=== PATIENT | female | born 1930 | race Caucasian/White ===

== ENCOUNTER 2017-09-08 22:02 | Inpatient (IN) | payer MEDICAID ==
[2017-09-08] MEDS: ONDANSETRON 4 MG INJ IV (23:39)
[2017-09-08] MEDS: morphine 2 MG INJ IV (23:39)
[2017-09-09 02:37] LABS: ADD MAN DIFF? NO
[2017-09-09 02:38] LABS: ABNORMAL IP MESSAGE 1; BASOPHIL # 0.1 10^3/ul (0.0-0.1); BASOPHILS % 0.6 % (0.0-2.0); EOSINOPHILS % 0.4 % (0.0-7.0); HEMOGLOBIN 10.8 g/dl (12.0-16.0); LYMPHOCYTES # 0.5 10^3/ul (0.8-2.9); LYMPHOCYTES % 5.8 % (15.0-51.0); MEAN CORPUSCULAR HEMOGLOBIN 25.1 pg (29.0-33.0); MEAN CORPUSCULAR HGB CONC 30.9 g/dl (32.0-37.0); MEAN CORPUSCULAR VOLUME 81.2 fl (82.0-101.0); MEAN PLATELET VOLUME 10.1 fl (7.4-10.4); MONOCYTE # 0.8 10^3/ul (0.3-0.9); NEUTROPHIL # 6.9 10^3/ul (1.6-7.5); PLATELET COUNT 310 10^3/UL (140-415); RED BLOOD COUNT 4.31 10^6/ul (4.20-5.40); RED CELL DISTRIBUTION WIDTH 16.3 % (11.5-14.5)
[2017-09-09 02:38] LABS: WHITE BLOOD COUNT 8.3 10^3/ul (4.8-10.8)
[2017-09-09 02:48] LABS: POSITIVE DIFF @See below
[2017-09-09 02:54] LABS: INR 2.04; PARTIAL THROMBOPLASTIN TIME 33.7 Sec (25.0-35.0); PROTIME 23.5 Sec (11.9-14.9); PT RATIO 1.8
[2017-09-09 02:55] LABS: ALANINE AMINOTRANSFERASE 17 IU/L (13-69); ALBUMIN 3.8 g/dl (3.3-4.9); ALBUMIN/GLOBULIN RATIO 1.15; ALKALINE PHOSPHATASE 105 IU/L (42-121); ANION GAP 14 (8-16); ASPARTATE AMINO TRANSFERASE 28 IU/L (15-46); BILIRUBIN,INDIRECT 0.6 mg/dl (0-1.1); BILIRUBIN,TOTAL 0.6 mg/dl (0.2-1.3); BLOOD UREA NITROGEN 16 mg/dl (7-20); CALCIUM 9.5 mg/dl (8.4-10.2); CARBON DIOXIDE 31 mmol/L (21-31); CHLORIDE 99 mmol/L (97-110); CREATININE 0.59 mg/dl (0.44-1.00); GLUCOSE 101 mg/dl (70-220); POTASSIUM 3.2 mmol/L (3.5-5.1); SODIUM 141 mmol/L (135-144); TOTAL PROTEIN 7.1 g/dl (6.1-8.1)
[2017-09-09] MEDS ORDERED: HYDROCODONE/APAP (5/325) TAB PO (05:30)
[2017-09-09] MEDS ORDERED: ONDANSETRON 4 MG INJ IV (05:30)
[2017-09-09] MEDS: PANTOPRAZOLE (EC) 40 MG TAB PO (06:23)
[2017-09-09] MEDS: POTASSIUM CHLORIDE (SR) 20 MEQ TAB PO ×2 (08:45→08:50)
[2017-09-09] MEDS: FUROSEMIDE 40 MG TAB PO (08:51)
[2017-09-09] MEDS: BENAZEPRIL 40 MG TAB PO (08:52)
[2017-09-09] MEDS: HEPARIN 5,000 UNIT/0.5 ML VIAL SC ×2 (08:52→21:53)
[2017-09-09] MEDS ORDERED: RANITIDINE 150 MG TAB PO (09:00)
[2017-09-09] MEDS: HYDROCODONE/APAP (5/325) TAB PO ×2 (10:44→14:46)
[2017-09-09] MEDS ORDERED: WARFARIN 1 MG TAB PO (17:00)
[2017-09-09] MEDS ORDERED: morphine 2 MG INJ IV (17:30)
[2017-09-09] MEDS: ATORVASTATIN 10 MG TAB PO (21:52)
[2017-09-10] MEDS: HYDROCODONE/APAP (5/325) TAB PO (03:09)
[2017-09-10] MEDS: PANTOPRAZOLE (EC) 40 MG TAB PO (05:04)
[2017-09-10 06:40] LABS: ADD MAN DIFF? NO
[2017-09-10 06:48] LABS: WHITE BLOOD COUNT 5.8 10^3/ul (4.8-10.8)
[2017-09-10 06:48] LABS: ABNORMAL IP MESSAGE 1; BASOPHIL # 0.1 10^3/ul (0.0-0.1); BASOPHILS % 1.2 % (0.0-2.0); EOSINOPHILS # 0.1 10^3/ul (0.0-0.5); EOSINOPHILS % 1.9 % (0.0-7.0); HEMATOCRIT 32.8 % (37.0-47.0); HEMOGLOBIN 9.7 g/dl (12.0-16.0); LYMPHOCYTES # 0.5 10^3/ul (0.8-2.9); LYMPHOCYTES % 8.7 % (15.0-51.0); MEAN CORPUSCULAR HEMOGLOBIN 24.4 pg (29.0-33.0); MEAN CORPUSCULAR HGB CONC 29.6 g/dl (32.0-37.0); MEAN CORPUSCULAR VOLUME 82.4 fl (82.0-101.0); MEAN PLATELET VOLUME 10.4 fl (7.4-10.4); MONOCYTE # 0.9 10^3/ul (0.3-0.9); MONOCYTES % 15.4 % (0.0-11.0); NEUTROPHIL # 4.2 10^3/ul (1.6-7.5); NEUTROPHILS % 72.5 % (39.0-77.0); PLATELET COUNT 291 10^3/UL (140-415); RED BLOOD COUNT 3.98 10^6/ul (4.20-5.40)
[2017-09-10 06:54] LABS: POSITIVE DIFF @See below
[2017-09-10 06:59] LABS: HEMOGLOBIN A1C 6.2 % (0-5.9)
[2017-09-10 07:09] LABS: INR 1.47; PROTIME 18.1 Sec (11.9-14.9); PT RATIO 1.4
[2017-09-10 07:13] LABS: IRON 35 ug/dl (35-150)
[2017-09-10 07:14] LABS: ALANINE AMINOTRANSFERASE 19 IU/L (13-69); ALBUMIN 3.5 g/dl (3.3-4.9); ALBUMIN/GLOBULIN RATIO 1.16; ALKALINE PHOSPHATASE 99 IU/L (42-121); ANION GAP 8 (8-16); ASPARTATE AMINO TRANSFERASE 27 IU/L (15-46); BILIRUBIN,INDIRECT 0.7 mg/dl (0-1.1); BILIRUBIN,TOTAL 0.7 mg/dl (0.2-1.3); BLOOD UREA NITROGEN 23 mg/dl (7-20); CALCIUM 9.1 mg/dl (8.4-10.2); CARBON DIOXIDE 32 mmol/L (21-31); CHLORIDE 102 mmol/L (97-110); CREATININE 0.75 mg/dl (0.44-1.00); GLUCOSE 88 mg/dl (70-220); POTASSIUM 4.3 mmol/L (3.5-5.1); SODIUM 138 mmol/L (135-144); TOTAL PROTEIN 6.5 g/dl (6.1-8.1)
[2017-09-10 07:22] LABS: % IRON SATURATION 8 % SAT (22-52); TOTAL IRON BINDING CAPACITY 425 ug/dl (241-421)
[2017-09-10 07:40] LABS: PHOSPHORUS 4.6 mg/dl (2.5-4.9)
[2017-09-10 07:40] LABS: MAGNESIUM 1.8 mg/dl (1.7-2.5)
[2017-09-10 07:42] LABS: FERRITIN 27.8 ng/ml (11.1-264.0)
[2017-09-10] MEDS: POTASSIUM CHLORIDE (SR) 20 MEQ TAB PO (08:32)
[2017-09-10] MEDS: SENNA/DOCUSATE NA (8.6MG/50MG) TAB PO (08:32)
[2017-09-10] MEDS: HEPARIN 5,000 UNIT/0.5 ML VIAL SC ×2 (08:33→21:01)
[2017-09-10] MEDS: BENAZEPRIL 40 MG TAB PO (08:33)
[2017-09-10] MEDS ORDERED: FAMOTIDINE 20 MG TAB PO (09:00)
[2017-09-10 09:31] LABS: FOLATE 7.5 ng/ml (2.8-20.0)
[2017-09-10] MEDS ORDERED: BISACODYL 10 MG SUPP PR (16:30)
[2017-09-10] MEDS ORDERED: HYDROCORTISONE 25 MG SUPP PR (16:30)
[2017-09-10] MEDS ORDERED: ALBUTEROL 0.083% (NEB) 2.5 MG/3 ML AMP HHN (16:30)
[2017-09-10] MEDS: LACTULOSE 30ML CUP PO (17:07)
[2017-09-10 18:23] LABS: RAPID PLASMA REAGIN NONREACTIVE (NR)
[2017-09-10] MEDS: ATORVASTATIN 10 MG TAB PO (21:01)
[2017-09-10] MEDS ORDERED: morphine LIQ (10 MG/5 ML) CUP PO (22:00)
[2017-09-10] MEDS: HYDROCODONE/APAP (10/325) TAB PO (22:33)
[2017-09-11 05:45] LABS: ADD MAN DIFF? NO
[2017-09-11 05:49] LABS: WHITE BLOOD COUNT 7.9 10^3/ul (4.8-10.8)
[2017-09-11 05:49] LABS: BASOPHIL # 0.1 10^3/ul (0.0-0.1); BASOPHILS % 0.9 % (0.0-2.0); EOSINOPHILS # 0.1 10^3/ul (0.0-0.5); EOSINOPHILS % 0.8 % (0.0-7.0); HEMATOCRIT 33.1 % (37.0-47.0); HEMOGLOBIN 9.8 g/dl (12.0-16.0); LYMPHOCYTES # 0.6 10^3/ul (0.8-2.9); LYMPHOCYTES % 7.8 % (15.0-51.0); MEAN CORPUSCULAR HEMOGLOBIN 24.4 pg (29.0-33.0); MEAN CORPUSCULAR HGB CONC 29.6 g/dl (32.0-37.0); MEAN CORPUSCULAR VOLUME 82.5 fl (82.0-101.0); MEAN PLATELET VOLUME 10.6 fl (7.4-10.4); MONOCYTE # 1.1 10^3/ul (0.3-0.9); MONOCYTES % 13.6 % (0.0-11.0); NEUTROPHIL # 6.1 10^3/ul (1.6-7.5); NEUTROPHILS % 76.5 % (39.0-77.0); PLATELET COUNT 288 10^3/UL (140-415); RED BLOOD COUNT 4.01 10^6/ul (4.20-5.40)
[2017-09-11 06:22] LABS: ANION GAP 8 (8-16); BLOOD UREA NITROGEN 21 mg/dl (7-20); CALCIUM 9.2 mg/dl (8.4-10.2); CARBON DIOXIDE 32 mmol/L (21-31); CHLORIDE 101 mmol/L (97-110); CREATININE 0.72 mg/dl (0.44-1.00); GLUCOSE 104 mg/dl (70-220); POTASSIUM 4.4 mmol/L (3.5-5.1); SODIUM 137 mmol/L (135-144)
[2017-09-11] MEDS: PANTOPRAZOLE (EC) 40 MG TAB PO (08:47)
[2017-09-11] MEDS: POTASSIUM CHLORIDE (SR) 20 MEQ TAB PO (08:47)
[2017-09-11] MEDS: BENAZEPRIL 40 MG TAB PO (08:47)
[2017-09-11] MEDS: SENNA/DOCUSATE NA (8.6MG/50MG) TAB PO (08:47)
[2017-09-11] MEDS: HEPARIN 5,000 UNIT/0.5 ML VIAL SC ×2 (08:54→20:45)
[2017-09-11] MEDS: HYDROCODONE/APAP (10/325) TAB PO (13:11)
[2017-09-11] MEDS: ATORVASTATIN 10 MG TAB PO (20:44)
[2017-09-11] MEDS: BISACODYL (EC) 5 MG TAB PO (20:44)
[2017-09-12] MEDS: HYDROCODONE/APAP (10/325) TAB PO (02:05)
[2017-09-12] MEDS: PANTOPRAZOLE (EC) 40 MG TAB PO (06:27)
[2017-09-12] MEDS: SENNA/DOCUSATE NA (8.6MG/50MG) TAB PO (08:50)
[2017-09-12] MEDS: CYANOCOBALAMIN 500 MCG TAB PO (08:50)
[2017-09-12] MEDS: BENAZEPRIL 40 MG TAB PO (08:50)
[2017-09-12] MEDS: POTASSIUM CHLORIDE (SR) 20 MEQ TAB PO (08:51)
[2017-09-12] MEDS: HEPARIN 5,000 UNIT/0.5 ML VIAL SC ×2 (08:51→21:10)
[2017-09-12] MEDS: ATORVASTATIN 10 MG TAB PO (21:08)
[2017-09-13] MEDS ORDERED: ALBUTEROL HFA 8 GM INHALER INH (02:30)
[2017-09-13] MEDS: HYDROCODONE/APAP (10/325) TAB PO ×2 (04:26→21:21)
[2017-09-13] MEDS: POTASSIUM CHLORIDE (SR) 20 MEQ TAB PO (08:41)
[2017-09-13] MEDS: BENAZEPRIL 40 MG TAB PO (08:41)
[2017-09-13] MEDS: CYANOCOBALAMIN 500 MCG TAB PO (08:41)
[2017-09-13] MEDS: SENNA/DOCUSATE NA (8.6MG/50MG) TAB PO (08:41)
[2017-09-13] MEDS: HEPARIN 5,000 UNIT/0.5 ML VIAL SC ×2 (08:42→21:23)
[2017-09-13] MEDS: ATORVASTATIN 10 MG TAB PO (21:21)
[2017-09-14] MEDS: HEPARIN 5,000 UNIT/0.5 ML VIAL SC ×2 (08:34→20:18)
[2017-09-14] MEDS: SENNA/DOCUSATE NA (8.6MG/50MG) TAB PO (08:35)
[2017-09-14] MEDS: POTASSIUM CHLORIDE (SR) 20 MEQ TAB PO (08:35)
[2017-09-14] MEDS: CYANOCOBALAMIN 500 MCG TAB PO (08:35)
[2017-09-14] MEDS: BENAZEPRIL 40 MG TAB PO (08:36)
[2017-09-14] MEDS: HYDROCODONE/APAP (10/325) TAB PO (08:37)
[2017-09-14] MEDS: ATORVASTATIN 10 MG TAB PO (20:14)
[2017-09-14] MEDS: METOPROLOL (XL) 25 MG TAB PO (20:14)
[2017-09-14] MEDS: BISACODYL (EC) 5 MG TAB PO (20:17)
[2017-09-14] MEDS: CALCIUM CARBONATE 1.25 GM TAB PO (21:02)
[2017-09-15] MEDS: HYDROCODONE/APAP (10/325) TAB PO ×3 (02:01→23:54)
[2017-09-15] MEDS: CALCIUM CARBONATE 1.25 GM TAB PO ×2 (08:21→20:40)
[2017-09-15] MEDS: BENAZEPRIL 40 MG TAB PO (08:21)
[2017-09-15] MEDS: CYANOCOBALAMIN 500 MCG TAB PO (08:21)
[2017-09-15] MEDS: SENNA/DOCUSATE NA (8.6MG/50MG) TAB PO (08:21)
[2017-09-15] MEDS: HEPARIN 5,000 UNIT/0.5 ML VIAL SC ×2 (08:22→20:42)
[2017-09-15] MEDS: METOPROLOL (XL) 25 MG TAB PO (08:22)
[2017-09-15] MEDS: ATORVASTATIN 10 MG TAB PO (20:40)
[2017-09-16] MEDS: HYDROCODONE/APAP (10/325) TAB PO ×2 (07:50→21:28)
[2017-09-16] MEDS: CALCIUM CARBONATE 1.25 GM TAB PO ×2 (08:52→20:12)
[2017-09-16] MEDS: SENNA/DOCUSATE NA (8.6MG/50MG) TAB PO (08:52)
[2017-09-16] MEDS: CYANOCOBALAMIN 500 MCG TAB PO (08:52)
[2017-09-16] MEDS: METOPROLOL (XL) 25 MG TAB PO (08:52)
[2017-09-16] MEDS: HEPARIN 5,000 UNIT/0.5 ML VIAL SC ×2 (08:53→20:13)
[2017-09-16] MEDS: BENAZEPRIL 40 MG TAB PO (08:54)
[2017-09-16] MEDS: ATORVASTATIN 10 MG TAB PO (20:12)
[2017-09-17 06:38] LABS: ADD MAN DIFF? NO
[2017-09-17 06:49] LABS: WHITE BLOOD COUNT 5.9 10^3/ul (4.8-10.8)
[2017-09-17 06:49] LABS: BASOPHIL # 0.1 10^3/ul (0.0-0.1); EOSINOPHILS # 0.1 10^3/ul (0.0-0.5); EOSINOPHILS % 1.5 % (0.0-7.0); HEMATOCRIT 35.9 % (37.0-47.0); HEMOGLOBIN 11.1 g/dl (12.0-16.0); LYMPHOCYTES # 0.9 10^3/ul (0.8-2.9); LYMPHOCYTES % 15.3 % (15.0-51.0); MEAN CORPUSCULAR HEMOGLOBIN 25.2 pg (29.0-33.0); MEAN CORPUSCULAR HGB CONC 30.9 g/dl (32.0-37.0); MEAN CORPUSCULAR VOLUME 81.4 fl (82.0-101.0); MEAN PLATELET VOLUME 11.6 fl (7.4-10.4); MONOCYTES % 16.3 % (0.0-11.0); NEUTROPHIL # 3.9 10^3/ul (1.6-7.5); NEUTROPHILS % 65.1 % (39.0-77.0); PLATELET COUNT 279 10^3/UL (140-415); RED BLOOD COUNT 4.41 10^6/ul (4.20-5.40); RED CELL DISTRIBUTION WIDTH 17.2 % (11.5-14.5)
[2017-09-17 07:12] LABS: ANION GAP 12 (8-16); BLOOD UREA NITROGEN 17 mg/dl (7-20); CALCIUM 9.7 mg/dl (8.4-10.2); CARBON DIOXIDE 30 mmol/L (21-31); CHLORIDE 99 mmol/L (97-110); CREATININE 0.62 mg/dl (0.44-1.00); GLUCOSE 97 mg/dl (70-220); MAGNESIUM 1.8 mg/dl (1.7-2.5); PHOSPHORUS 4.6 mg/dl (2.5-4.9); POTASSIUM 4.3 mmol/L (3.5-5.1); SODIUM 137 mmol/L (135-144)
[2017-09-17] MEDS: CYANOCOBALAMIN 500 MCG TAB PO (08:32)
[2017-09-17] MEDS: CALCIUM CARBONATE 1.25 GM TAB PO ×2 (08:32→21:01)
[2017-09-17] MEDS: HEPARIN 5,000 UNIT/0.5 ML VIAL SC (08:32)
[2017-09-17] MEDS: SENNA/DOCUSATE NA (8.6MG/50MG) TAB PO (08:32)
[2017-09-17] MEDS: METOPROLOL (XL) 25 MG TAB PO (08:33)
[2017-09-17] MEDS: BENAZEPRIL 40 MG TAB PO (08:33)
[2017-09-17] MEDS: HYDROCODONE/APAP (10/325) TAB PO ×2 (17:21→23:47)
[2017-09-17] MEDS: WARFARIN 3 MG TAB PO (17:21)
[2017-09-17] MEDS: ATORVASTATIN 10 MG TAB PO (21:01)
[2017-09-18 05:43] LABS: ADD MAN DIFF? NO
[2017-09-18 06:03] LABS: BASOPHIL # 0.1 10^3/ul (0.0-0.1); BASOPHILS % 1.1 % (0.0-2.0); EOSINOPHILS # 0.1 10^3/ul (0.0-0.5); EOSINOPHILS % 1.6 % (0.0-7.0); HEMOGLOBIN 10.7 g/dl (12.0-16.0); LYMPHOCYTES # 0.7 10^3/ul (0.8-2.9); LYMPHOCYTES % 12.2 % (15.0-51.0); MEAN CORPUSCULAR HGB CONC 30.6 g/dl (32.0-37.0); MEAN CORPUSCULAR VOLUME 81.8 fl (82.0-101.0); MEAN PLATELET VOLUME 10.5 fl (7.4-10.4); MONOCYTE # 0.9 10^3/ul (0.3-0.9); MONOCYTES % 15.7 % (0.0-11.0); NEUTROPHIL # 3.8 10^3/ul (1.6-7.5); NEUTROPHILS % 68.7 % (39.0-77.0); PLATELET COUNT 317 10^3/UL (140-415); RED BLOOD COUNT 4.28 10^6/ul (4.20-5.40); RED CELL DISTRIBUTION WIDTH 17.3 % (11.5-14.5)
[2017-09-18 06:03] LABS: WHITE BLOOD COUNT 5.5 10^3/ul (4.8-10.8)
[2017-09-18 06:09] LABS: INR 0.98; PROTIME 13.1 Sec (11.9-14.9)
[2017-09-18 06:21] LABS: ANION GAP 10 (8-16); BLOOD UREA NITROGEN 12 mg/dl (7-20); CALCIUM 9.4 mg/dl (8.4-10.2); CARBON DIOXIDE 32 mmol/L (21-31); CHLORIDE 98 mmol/L (97-110); CREATININE 0.64 mg/dl (0.44-1.00); GLUCOSE 90 mg/dl (70-220); MAGNESIUM 1.8 mg/dl (1.7-2.5); PHOSPHORUS 3.8 mg/dl (2.5-4.9); SODIUM 136 mmol/L (135-144)
[2017-09-18] MEDS: CALCIUM CARBONATE 1.25 GM TAB PO ×2 (08:56→21:34)
[2017-09-18] MEDS: HYDROCODONE/APAP (10/325) TAB PO ×2 (08:56→23:00)
[2017-09-18] MEDS: METOPROLOL (XL) 25 MG TAB PO (08:56)
[2017-09-18] MEDS: CYANOCOBALAMIN 500 MCG TAB PO (08:57)
[2017-09-18] MEDS: BENAZEPRIL 40 MG TAB PO (08:57)
[2017-09-18] MEDS: SENNA/DOCUSATE NA (8.6MG/50MG) TAB PO (08:58)
[2017-09-18] MEDS: WARFARIN 3 MG TAB PO (17:13)
[2017-09-18] MEDS: ATORVASTATIN 10 MG TAB PO (21:34)
[2017-09-19] MEDS: BENAZEPRIL 40 MG TAB PO (08:43)
[2017-09-19] MEDS: CALCIUM CARBONATE 1.25 GM TAB PO ×2 (08:43→20:42)
[2017-09-19] MEDS: CYANOCOBALAMIN 500 MCG TAB PO (08:43)
[2017-09-19] MEDS: SENNA/DOCUSATE NA (8.6MG/50MG) TAB PO (08:43)
[2017-09-19] MEDS: METOPROLOL (XL) 25 MG TAB PO (08:44)
[2017-09-19 09:45] LABS: INR 1.08; PROTIME 14.1 Sec (11.9-14.9); PT RATIO 1.1
[2017-09-19] MEDS: hydrALAzine 20 MG INJ IV (15:25)
[2017-09-19] MEDS: WARFARIN 3 MG TAB PO (16:42)
[2017-09-19] MEDS: ATORVASTATIN 10 MG TAB PO (20:38)
[2017-09-19] MEDS: HYDROCODONE/APAP (10/325) TAB PO (20:41)
[2017-09-20] MEDS: HYDROCODONE/APAP (10/325) TAB PO ×3 (00:46→21:12)
[2017-09-20 04:59] LABS: ADD MAN DIFF? NO
[2017-09-20 05:06] LABS: WHITE BLOOD COUNT 6.2 10^3/ul (4.8-10.8)
[2017-09-20 05:06] LABS: BASOPHIL # 0.1 10^3/ul (0.0-0.1); EOSINOPHILS # 0.1 10^3/ul (0.0-0.5); EOSINOPHILS % 1.5 % (0.0-7.0); HEMATOCRIT 33.3 % (37.0-47.0); HEMOGLOBIN 10.1 g/dl (12.0-16.0); LYMPHOCYTES # 0.8 10^3/ul (0.8-2.9); LYMPHOCYTES % 12.1 % (15.0-51.0); MEAN CORPUSCULAR HEMOGLOBIN 25.1 pg (29.0-33.0); MEAN CORPUSCULAR HGB CONC 30.3 g/dl (32.0-37.0); MEAN CORPUSCULAR VOLUME 82.8 fl (82.0-101.0); MEAN PLATELET VOLUME 10.7 fl (7.4-10.4); MONOCYTE # 1.1 10^3/ul (0.3-0.9); NEUTROPHIL # 4.2 10^3/ul (1.6-7.5); NEUTROPHILS % 67.9 % (39.0-77.0); PLATELET COUNT 322 10^3/UL (140-415); RED BLOOD COUNT 4.02 10^6/ul (4.20-5.40)
[2017-09-20 05:20] LABS: ANION GAP 9 (8-16); BLOOD UREA NITROGEN 12 mg/dl (7-20); CARBON DIOXIDE 30 mmol/L (21-31); CHLORIDE 99 mmol/L (97-110); CREATININE 0.56 mg/dl (0.44-1.00); GLUCOSE 89 mg/dl (70-220); MAGNESIUM 1.8 mg/dl (1.7-2.5); PHOSPHORUS 3.9 mg/dl (2.5-4.9); POTASSIUM 3.9 mmol/L (3.5-5.1); SODIUM 134 mmol/L (135-144)
[2017-09-20 05:32] LABS: INR 1.11; PROTIME 14.5 Sec (11.9-14.9); PT RATIO 1.1
[2017-09-20] MEDS: SENNA/DOCUSATE NA (8.6MG/50MG) TAB PO (08:07)
[2017-09-20] MEDS: CALCIUM CARBONATE 1.25 GM TAB PO ×2 (08:07→21:12)
[2017-09-20] MEDS: CYANOCOBALAMIN 500 MCG TAB PO (08:07)
[2017-09-20] MEDS: METOPROLOL (XL) 25 MG TAB PO (08:18)
[2017-09-20] MEDS: BENAZEPRIL 40 MG TAB PO (08:18)
[2017-09-20] MEDS: WARFARIN 3 MG TAB PO (17:35)
[2017-09-20] MEDS: ATORVASTATIN 10 MG TAB PO (21:12)
[2017-09-20] MEDS: HEPARIN 5,000 UNIT/0.5 ML VIAL SC (21:13)
[2017-09-21] MEDS: HYDROCODONE/APAP (10/325) TAB PO ×2 (04:43→23:12)
[2017-09-21 05:02] LABS: ADD MAN DIFF? NO
[2017-09-21 05:08] LABS: BASOPHIL # 0.1 10^3/ul (0.0-0.1); BASOPHILS % 1.2 % (0.0-2.0); EOSINOPHILS # 0.2 10^3/ul (0.0-0.5); EOSINOPHILS % 3.3 % (0.0-7.0); HEMATOCRIT 32.5 % (37.0-47.0); HEMOGLOBIN 9.8 g/dl (12.0-16.0); LYMPHOCYTES # 0.7 10^3/ul (0.8-2.9); LYMPHOCYTES % 11.9 % (15.0-51.0); MEAN CORPUSCULAR HEMOGLOBIN 24.8 pg (29.0-33.0); MEAN CORPUSCULAR HGB CONC 30.2 g/dl (32.0-37.0); MEAN CORPUSCULAR VOLUME 82.3 fl (82.0-101.0); MEAN PLATELET VOLUME 10.8 fl (7.4-10.4); MONOCYTES % 16.6 % (0.0-11.0); NEUTROPHIL # 3.8 10^3/ul (1.6-7.5); NEUTROPHILS % 66.5 % (39.0-77.0); PLATELET COUNT 284 10^3/UL (140-415); RED BLOOD COUNT 3.95 10^6/ul (4.20-5.40)
[2017-09-21 05:08] LABS: WHITE BLOOD COUNT 5.7 10^3/ul (4.8-10.8)
[2017-09-21 05:27] LABS: ANION GAP 8 (8-16); BLOOD UREA NITROGEN 13 mg/dl (7-20); CALCIUM 9.2 mg/dl (8.4-10.2); CARBON DIOXIDE 31 mmol/L (21-31); CHLORIDE 100 mmol/L (97-110); CREATININE 0.58 mg/dl (0.44-1.00); GLUCOSE 89 mg/dl (70-220); INR 1.23; MAGNESIUM 1.9 mg/dl (1.7-2.5); PHOSPHORUS 3.9 mg/dl (2.5-4.9); POTASSIUM 4.2 mmol/L (3.5-5.1); PROTIME 15.7 Sec (11.9-14.9); PT RATIO 1.2; SODIUM 135 mmol/L (135-144)
[2017-09-21] MEDS: BENAZEPRIL 40 MG TAB PO (08:58)
[2017-09-21] MEDS: CALCIUM CARBONATE 1.25 GM TAB PO ×2 (08:59→20:53)
[2017-09-21] MEDS: SENNA/DOCUSATE NA (8.6MG/50MG) TAB PO (08:59)
[2017-09-21] MEDS: CYANOCOBALAMIN 500 MCG TAB PO (09:00)
[2017-09-21] MEDS: METOPROLOL (XL) 25 MG TAB PO (09:00)
[2017-09-21] MEDS: HEPARIN 5,000 UNIT/0.5 ML VIAL SC ×2 (09:01→20:53)
[2017-09-21] MEDS: WARFARIN 3 MG TAB PO (17:17)
[2017-09-21] MEDS: ATORVASTATIN 10 MG TAB PO (20:52)
[2017-09-22] MEDS: HYDROCODONE/APAP (10/325) TAB PO ×2 (05:55→22:44)
[2017-09-22 05:57] LABS: PROTIME 15.4 Sec (11.9-14.9); PT RATIO 1.2
[2017-09-22] MEDS: METOPROLOL (XL) 25 MG TAB PO (08:53)
[2017-09-22] MEDS: CYANOCOBALAMIN 500 MCG TAB PO (08:53)
[2017-09-22] MEDS: CALCIUM CARBONATE 1.25 GM TAB PO ×2 (08:53→20:29)
[2017-09-22] MEDS: SENNA/DOCUSATE NA (8.6MG/50MG) TAB PO (08:53)
[2017-09-22] MEDS: BENAZEPRIL 40 MG TAB PO (08:53)
[2017-09-22] MEDS: HEPARIN 5,000 UNIT/0.5 ML VIAL SC ×2 (08:57→20:34)
[2017-09-22] MEDS: WARFARIN 3 MG TAB PO (17:18)
[2017-09-22] MEDS: ATORVASTATIN 10 MG TAB PO (20:29)
[2017-09-23] MEDS: HYDROCODONE/APAP (10/325) TAB PO (06:32)
[2017-09-23] MEDS: CYANOCOBALAMIN 500 MCG TAB PO (08:55)
[2017-09-23] MEDS: BENAZEPRIL 40 MG TAB PO (08:55)
[2017-09-23] MEDS: METOPROLOL (XL) 25 MG TAB PO (08:55)
[2017-09-23] MEDS: CALCIUM CARBONATE 1.25 GM TAB PO ×2 (08:55→20:22)
[2017-09-23] MEDS: SENNA/DOCUSATE NA (8.6MG/50MG) TAB PO (08:55)
[2017-09-23] MEDS: HEPARIN 5,000 UNIT/0.5 ML VIAL SC ×2 (08:56→20:28)
[2017-09-23] MEDS: hydrALAzine 20 MG INJ IV ×2 (10:24→19:48)
[2017-09-23] MEDS: ACETAMINOPHEN 325 MG TAB PO (15:43)
[2017-09-23] MEDS: WARFARIN 3 MG TAB PO (16:23)
[2017-09-23] MEDS: ATORVASTATIN 10 MG TAB PO (20:23)
[2017-09-24] MEDS: hydrALAzine 20 MG INJ IV (01:53)
[2017-09-24] MEDS: HYDROCODONE/APAP (10/325) TAB PO ×3 (03:13→20:18)
[2017-09-24 05:36] LABS: ADD MAN DIFF? NO
[2017-09-24 05:41] LABS: ABNORMAL IP MESSAGE 1; BASOPHIL # 0.1 10^3/ul (0.0-0.1); EOSINOPHILS # 0.1 10^3/ul (0.0-0.5); EOSINOPHILS % 1.8 % (0.0-7.0); HEMATOCRIT 33.5 % (37.0-47.0); HEMOGLOBIN 10.4 g/dl (12.0-16.0); LYMPHOCYTES # 0.4 10^3/ul (0.8-2.9); LYMPHOCYTES % 7.2 % (15.0-51.0); MEAN CORPUSCULAR HEMOGLOBIN 25.2 pg (29.0-33.0); MEAN CORPUSCULAR VOLUME 81.3 fl (82.0-101.0); MEAN PLATELET VOLUME 10.8 fl (7.4-10.4); MONOCYTE # 0.9 10^3/ul (0.3-0.9); MONOCYTES % 15.5 % (0.0-11.0); NEUTROPHIL # 4.4 10^3/ul (1.6-7.5); PLATELET COUNT 333 10^3/UL (140-415); RED BLOOD COUNT 4.12 10^6/ul (4.20-5.40)
[2017-09-24 05:50] LABS: POSITIVE DIFF @See below
[2017-09-24 05:55] LABS: INR 1.26; PT RATIO 1.3
[2017-09-24 06:55] LABS: ALBUMIN 3.4 g/dl (3.3-4.9); ANION GAP 11 (8-16); BLOOD UREA NITROGEN 9 mg/dl (7-20); CALCIUM 9.2 mg/dl (8.4-10.2); CARBON DIOXIDE 28 mmol/L (21-31); CHLORIDE 100 mmol/L (97-110); CREATININE 0.53 mg/dl (0.44-1.00); GLUCOSE 98 mg/dl (70-220); MAGNESIUM 1.7 mg/dl (1.7-2.5); POTASSIUM 3.6 mmol/L (3.5-5.1); SODIUM 135 mmol/L (135-144)
[2017-09-24] MEDS: BENAZEPRIL 40 MG TAB PO (08:31)
[2017-09-24] MEDS: CYANOCOBALAMIN 500 MCG TAB PO (08:32)
[2017-09-24] MEDS: CALCIUM CARBONATE 1.25 GM TAB PO ×2 (08:32→20:18)
[2017-09-24] MEDS: SENNA/DOCUSATE NA (8.6MG/50MG) TAB PO (08:32)
[2017-09-24] MEDS: METOPROLOL (XL) 25 MG TAB PO (08:32)
[2017-09-24] MEDS: HEPARIN 5,000 UNIT/0.5 ML VIAL SC ×2 (08:37→20:18)
[2017-09-24] MEDS: POTASSIUM CHLORIDE (SR) 20 MEQ TAB PO (10:06)
[2017-09-24] MEDS: MAGNESIUM OXIDE 400 MG TAB PO (10:06)
[2017-09-24] MEDS ORDERED: traZODone 50 MG TAB PO (12:30)
[2017-09-24] MEDS: WARFARIN 3 MG TAB PO (17:54)
[2017-09-24] MEDS: ATORVASTATIN 10 MG TAB PO (20:18)
[2017-09-25 06:16] LABS: ADD MAN DIFF? NO
[2017-09-25 06:17] LABS: BASOPHIL # 0.1 10^3/ul (0.0-0.1); BASOPHILS % 1.9 % (0.0-2.0); EOSINOPHILS # 0.2 10^3/ul (0.0-0.5); EOSINOPHILS % 3.5 % (0.0-7.0); HEMATOCRIT 35.6 % (37.0-47.0); HEMOGLOBIN 10.6 g/dl (12.0-16.0); LYMPHOCYTES # 0.9 10^3/ul (0.8-2.9); LYMPHOCYTES % 16.6 % (15.0-51.0); MEAN CORPUSCULAR HEMOGLOBIN 24.5 pg (29.0-33.0); MEAN CORPUSCULAR HGB CONC 29.8 g/dl (32.0-37.0); MEAN CORPUSCULAR VOLUME 82.2 fl (82.0-101.0); MEAN PLATELET VOLUME 10.6 fl (7.4-10.4); MONOCYTES % 18.4 % (0.0-11.0); NEUTROPHIL # 3.2 10^3/ul (1.6-7.5); PLATELET COUNT 367 10^3/UL (140-415); RED BLOOD COUNT 4.33 10^6/ul (4.20-5.40); RED CELL DISTRIBUTION WIDTH 17.4 % (11.5-14.5)
[2017-09-25 06:17] LABS: WHITE BLOOD COUNT 5.4 10^3/ul (4.8-10.8)
[2017-09-25 06:51] LABS: ALBUMIN 3.9 g/dl (3.3-4.9); ANION GAP 15 (8-16); BLOOD UREA NITROGEN 9 mg/dl (7-20); CALCIUM 9.9 mg/dl (8.4-10.2); CARBON DIOXIDE 30 mmol/L (21-31); CHLORIDE 98 mmol/L (97-110); CREATININE 0.62 mg/dl (0.44-1.00); GLUCOSE 96 mg/dl (70-220); MAGNESIUM 1.9 mg/dl (1.7-2.5); PHOSPHORUS 4.7 mg/dl (2.5-4.9); POTASSIUM 4.8 mmol/L (3.5-5.1); SODIUM 138 mmol/L (135-144)
[2017-09-25] MEDS: SENNA/DOCUSATE NA (8.6MG/50MG) TAB PO (08:40)
[2017-09-25] MEDS: CALCIUM CARBONATE 1.25 GM TAB PO ×2 (08:41→21:12)
[2017-09-25] MEDS: HEPARIN 5,000 UNIT/0.5 ML VIAL SC ×2 (08:41→21:13)
[2017-09-25] MEDS: CYANOCOBALAMIN 500 MCG TAB PO (08:42)
[2017-09-25] MEDS: BENAZEPRIL 40 MG TAB PO (08:42)
[2017-09-25] MEDS: METOPROLOL (XL) 25 MG TAB PO (08:42)
[2017-09-25] MEDS: HYDROCODONE/APAP (10/325) TAB PO (08:42)
[2017-09-25] MEDS: WARFARIN 3 MG TAB PO (16:49)
[2017-09-25] MEDS: ATORVASTATIN 10 MG TAB PO (21:09)
[2017-09-26] MEDS: HYDROCODONE/APAP (10/325) TAB PO (01:02)
[2017-09-26 05:23] LABS: ADD MAN DIFF? NO
[2017-09-26 05:27] LABS: BASOPHIL # 0.1 10^3/ul (0.0-0.1); BASOPHILS % 1.6 % (0.0-2.0); EOSINOPHILS # 0.1 10^3/ul (0.0-0.5); EOSINOPHILS % 2.3 % (0.0-7.0); HEMATOCRIT 31.2 % (37.0-47.0); HEMOGLOBIN 9.6 g/dl (12.0-16.0); LYMPHOCYTES # 0.7 10^3/ul (0.8-2.9); LYMPHOCYTES % 13.5 % (15.0-51.0); MEAN CORPUSCULAR HEMOGLOBIN 25.3 pg (29.0-33.0); MEAN CORPUSCULAR HGB CONC 30.8 g/dl (32.0-37.0); MEAN CORPUSCULAR VOLUME 82.1 fl (82.0-101.0); MEAN PLATELET VOLUME 10.7 fl (7.4-10.4); MONOCYTES % 19.1 % (0.0-11.0); NEUTROPHIL # 3.2 10^3/ul (1.6-7.5); NEUTROPHILS % 62.7 % (39.0-77.0); PLATELET COUNT 308 10^3/UL (140-415); RED CELL DISTRIBUTION WIDTH 17.2 % (11.5-14.5)
[2017-09-26 05:27] LABS: WHITE BLOOD COUNT 5.1 10^3/ul (4.8-10.8)
[2017-09-26 05:47] LABS: INR 1.48; PROTIME 18.2 Sec (11.9-14.9); PT RATIO 1.4
[2017-09-26 05:53] LABS: ALBUMIN 3.2 g/dl (3.3-4.9); ANION GAP 10 (8-16); BLOOD UREA NITROGEN 11 mg/dl (7-20); CALCIUM 9.3 mg/dl (8.4-10.2); CARBON DIOXIDE 31 mmol/L (21-31); CHLORIDE 98 mmol/L (97-110); CREATININE 0.59 mg/dl (0.44-1.00); GLUCOSE 84 mg/dl (70-220); MAGNESIUM 1.8 mg/dl (1.7-2.5); PHOSPHORUS 4.7 mg/dl (2.5-4.9); POTASSIUM 4.5 mmol/L (3.5-5.1); SODIUM 134 mmol/L (135-144)
[2017-09-26] MEDS: BENAZEPRIL 40 MG TAB PO (09:47)
[2017-09-26] MEDS: METOPROLOL (XL) 25 MG TAB PO (09:48)
[2017-09-26] MEDS: CYANOCOBALAMIN 500 MCG TAB PO (09:48)
[2017-09-26] MEDS: CALCIUM CARBONATE 1.25 GM TAB PO ×2 (09:48→21:09)
[2017-09-26] MEDS: SENNA/DOCUSATE NA (8.6MG/50MG) TAB PO (09:48)
[2017-09-26] MEDS: HEPARIN 5,000 UNIT/0.5 ML VIAL SC ×2 (09:53→21:12)
[2017-09-26] MEDS: WARFARIN 3 MG TAB PO (16:06)
[2017-09-26] MEDS: ACETAMINOPHEN 325 MG TAB PO (16:06)
[2017-09-26] MEDS: ATORVASTATIN 10 MG TAB PO (21:09)
[2017-09-26] MEDS: hydrALAzine 20 MG INJ IV (21:10)
[2017-09-27] MEDS: HYDROCODONE/APAP (10/325) TAB PO ×2 (01:31→08:55)
[2017-09-27] MEDS: CYANOCOBALAMIN 500 MCG TAB PO (08:49)
[2017-09-27] MEDS: CALCIUM CARBONATE 1.25 GM TAB PO ×2 (08:49→20:28)
[2017-09-27] MEDS: METOPROLOL (XL) 25 MG TAB PO (08:50)
[2017-09-27] MEDS: SENNA/DOCUSATE NA (8.6MG/50MG) TAB PO (08:50)
[2017-09-27] MEDS: HEPARIN 5,000 UNIT/0.5 ML VIAL SC ×2 (08:50→20:30)
[2017-09-27] MEDS: BENAZEPRIL 40 MG TAB PO (08:51)
[2017-09-27] MEDS: WARFARIN 3 MG TAB PO (18:05)
[2017-09-27] MEDS: traZODone 50 MG TAB PO (20:28)
[2017-09-27] MEDS: ATORVASTATIN 10 MG TAB PO (20:28)
[2017-09-28] MEDS: HYDROCODONE/APAP (10/325) TAB PO (01:18)
[2017-09-28 05:49] LABS: INR 1.47; PROTIME 18.1 Sec (11.9-14.9); PT RATIO 1.4
[2017-09-28] MEDS: CALCIUM CARBONATE 1.25 GM TAB PO ×2 (09:05→20:12)
[2017-09-28] MEDS: SENNA/DOCUSATE NA (8.6MG/50MG) TAB PO (09:05)
[2017-09-28] MEDS: CYANOCOBALAMIN 500 MCG TAB PO (09:05)
[2017-09-28] MEDS: BENAZEPRIL 40 MG TAB PO (09:09)
[2017-09-28] MEDS: METOPROLOL (XL) 25 MG TAB PO (09:09)
[2017-09-28] MEDS: HEPARIN 5,000 UNIT/0.5 ML VIAL SC ×2 (09:11→20:13)
[2017-09-28] MEDS: ACETAMINOPHEN 325 MG TAB PO (11:47)
[2017-09-28] MEDS: WARFARIN 10 MG TAB PO (16:52)
[2017-09-28] MEDS ORDERED: WARFARIN 7.5 MG TAB PO (17:00)
[2017-09-28] MEDS: traZODone 50 MG TAB PO (20:12)
[2017-09-28] MEDS: ATORVASTATIN 10 MG TAB PO (20:12)
[2017-09-29] MEDS: HYDROCODONE/APAP (10/325) TAB PO (00:17)
[2017-09-29] MEDS: CALCIUM CARBONATE 1.25 GM TAB PO ×2 (10:25→20:28)
[2017-09-29] MEDS: CYANOCOBALAMIN 500 MCG TAB PO (10:25)
[2017-09-29] MEDS: BENAZEPRIL 40 MG TAB PO (10:25)
[2017-09-29] MEDS: SENNA/DOCUSATE NA (8.6MG/50MG) TAB PO (10:25)
[2017-09-29] MEDS: METOPROLOL (XL) 25 MG TAB PO (10:26)
[2017-09-29] MEDS: HEPARIN 5,000 UNIT/0.5 ML VIAL SC ×2 (10:27→20:29)
[2017-09-29 14:04] LABS: NIL 0.04 IU/mL; QUANTIFERON(R)-TB GOLD NEGATIVE (NEGATIVE); TB-NIL 0.05 IU/mL
[2017-09-29] MEDS: WARFARIN 3 MG TAB PO (18:18)
[2017-09-29] MEDS: ATORVASTATIN 10 MG TAB PO (20:27)
[2017-09-29] MEDS: traZODone 50 MG TAB PO (20:28)
[2017-09-29] MEDS ORDERED: VITAMIN A & D 5 GM OINT PACKET TOP (23:03)
[2017-09-30] MEDS: HYDROCODONE/APAP (10/325) TAB PO (01:34)
[2017-09-30 05:25] LABS: ADD MAN DIFF? NO
[2017-09-30 05:30] LABS: BASOPHIL # 0.1 10^3/ul (0.0-0.1); BASOPHILS % 1.7 % (0.0-2.0); EOSINOPHILS # 0.1 10^3/ul (0.0-0.5); EOSINOPHILS % 1.5 % (0.0-7.0); HEMATOCRIT 31.5 % (37.0-47.0); HEMOGLOBIN 9.7 g/dl (12.0-16.0); IMMATURE GRANS #M 0.02 10^3/ul; IMMATURE GRANS % (M) 0.4 %; LYMPHOCYTES # 0.7 10^3/ul (0.8-2.9); LYMPHOCYTES % 13.6 % (15.0-51.0); MEAN CORPUSCULAR HEMOGLOBIN 24.9 pg (29.0-33.0); MEAN CORPUSCULAR HGB CONC 30.8 g/dl (32.0-37.0); MEAN PLATELET VOLUME 10.6 fl (7.4-10.4); MONOCYTE # 0.9 10^3/ul (0.3-0.9); MONOCYTES % 16.4 % (0.0-11.0); NEUTROPHIL # 3.6 10^3/ul (1.6-7.5); NEUTROPHILS % 66.4 % (39.0-77.0); PLATELET COUNT 293 10^3/UL (140-415); RED BLOOD COUNT 3.89 10^6/ul (4.20-5.40)
[2017-09-30 05:30] LABS: WHITE BLOOD COUNT 5.4 10^3/ul (4.8-10.8)
[2017-09-30 05:49] LABS: INR 2.17; PROTIME 24.7 Sec (11.9-14.9); PT RATIO 1.9
[2017-09-30 05:57] LABS: ALBUMIN 3.3 g/dl (3.3-4.9); ANION GAP 12 (8-16); BLOOD UREA NITROGEN 9 mg/dl (7-20); CALCIUM 9.1 mg/dl (8.4-10.2); CARBON DIOXIDE 28 mmol/L (21-31); CHLORIDE 101 mmol/L (97-110); CREATININE 0.56 mg/dl (0.44-1.00); GLUCOSE 87 mg/dl (70-220); MAGNESIUM 1.8 mg/dl (1.7-2.5); POTASSIUM 4.1 mmol/L (3.5-5.1); SODIUM 137 mmol/L (135-144)
[2017-09-30] MEDS: ACETAMINOPHEN 325 MG TAB PO (09:35)
[2017-09-30] MEDS: METOPROLOL (XL) 25 MG TAB PO (09:36)
[2017-09-30] MEDS: BENAZEPRIL 40 MG TAB PO (09:36)
[2017-09-30] MEDS: SENNA/DOCUSATE NA (8.6MG/50MG) TAB PO (09:36)
[2017-09-30] MEDS: CYANOCOBALAMIN 500 MCG TAB PO (09:36)
[2017-09-30] MEDS: CALCIUM CARBONATE 1.25 GM TAB PO ×2 (09:36→20:38)
[2017-09-30] MEDS: WARFARIN 3 MG TAB PO (16:27)
[2017-09-30] MEDS: traZODone 50 MG TAB PO (20:38)
[2017-09-30] MEDS: ATORVASTATIN 10 MG TAB PO (20:38)
[2017-10-01] MEDS: HYDROCODONE/APAP (10/325) TAB PO (01:01)
[2017-10-01 08:03] LABS: ADD MAN DIFF? NO
[2017-10-01 08:07] LABS: BASOPHIL # 0.1 10^3/ul (0.0-0.1); BASOPHILS % 1.8 % (0.0-2.0); EOSINOPHILS # 0.1 10^3/ul (0.0-0.5); EOSINOPHILS % 2.4 % (0.0-7.0); HEMATOCRIT 31.3 % (37.0-47.0); HEMOGLOBIN 9.6 g/dl (12.0-16.0); IMMATURE GRANS #M 0.02 10^3/ul; IMMATURE GRANS % (M) 0.4 %; LYMPHOCYTES # 0.7 10^3/ul (0.8-2.9); LYMPHOCYTES % 14.2 % (15.0-51.0); MEAN CORPUSCULAR HEMOGLOBIN 24.9 pg (29.0-33.0); MEAN CORPUSCULAR HGB CONC 30.7 g/dl (32.0-37.0); MEAN CORPUSCULAR VOLUME 81.1 fl (82.0-101.0); MEAN PLATELET VOLUME 10.8 fl (7.4-10.4); MONOCYTE # 0.8 10^3/ul (0.3-0.9); MONOCYTES % 16.7 % (0.0-11.0); NEUTROPHIL # 3.2 10^3/ul (1.6-7.5); NEUTROPHILS % 64.5 % (39.0-77.0); PLATELET COUNT 258 10^3/UL (140-415); RED BLOOD COUNT 3.86 10^6/ul (4.20-5.40); RED CELL DISTRIBUTION WIDTH 17.3 % (11.5-14.5)
[2017-10-01 08:07] LABS: WHITE BLOOD COUNT 4.9 10^3/ul (4.8-10.8)
[2017-10-01 08:32] LABS: INR 2.28; PROTIME 25.7 Sec (11.9-14.9)
[2017-10-01 08:35] LABS: ALBUMIN 3.3 g/dl (3.3-4.9); ANION GAP 12 (8-16); BLOOD UREA NITROGEN 13 mg/dl (7-20); CARBON DIOXIDE 27 mmol/L (21-31); CHLORIDE 102 mmol/L (97-110); CREATININE 0.58 mg/dl (0.44-1.00); GLUCOSE 84 mg/dl (70-220); MAGNESIUM 1.9 mg/dl (1.7-2.5); PHOSPHORUS 3.9 mg/dl (2.5-4.9); POTASSIUM 4.4 mmol/L (3.5-5.1); SODIUM 137 mmol/L (135-144)
[2017-10-01] MEDS: CYANOCOBALAMIN 500 MCG TAB PO (08:41)
[2017-10-01] MEDS: SENNA/DOCUSATE NA (8.6MG/50MG) TAB PO (08:41)
[2017-10-01] MEDS: CALCIUM CARBONATE 1.25 GM TAB PO ×2 (08:41→20:24)
[2017-10-01] MEDS: BENAZEPRIL 40 MG TAB PO (08:42)
[2017-10-01] MEDS: METOPROLOL (XL) 25 MG TAB PO (08:43)
[2017-10-01] MEDS: WARFARIN 3 MG TAB PO (16:26)
[2017-10-01] MEDS: ACETAMINOPHEN 325 MG TAB PO (16:28)
[2017-10-01] MEDS: traZODone 50 MG TAB PO (20:24)
[2017-10-01] MEDS: ATORVASTATIN 10 MG TAB PO (20:24)
[2017-10-02] MEDS: ACETAMINOPHEN 325 MG TAB PO (04:56)
[2017-10-02 06:46] LABS: ADD MAN DIFF? NO
[2017-10-02 06:51] LABS: BASOPHIL # 0.1 10^3/ul (0.0-0.1); BASOPHILS % 2.1 % (0.0-2.0); EOSINOPHILS # 0.1 10^3/ul (0.0-0.5); EOSINOPHILS % 2.5 % (0.0-7.0); HEMATOCRIT 31.3 % (37.0-47.0); HEMOGLOBIN 9.8 g/dl (12.0-16.0); IMMATURE GRANS #M 0.02 10^3/ul; IMMATURE GRANS % (M) 0.4 %; LYMPHOCYTES # 0.6 10^3/ul (0.8-2.9); LYMPHOCYTES % 12.7 % (15.0-51.0); MEAN CORPUSCULAR HEMOGLOBIN 25.3 pg (29.0-33.0); MEAN CORPUSCULAR HGB CONC 31.3 g/dl (32.0-37.0); MEAN CORPUSCULAR VOLUME 80.7 fl (82.0-101.0); MONOCYTE # 0.8 10^3/ul (0.3-0.9); MONOCYTES % 16.8 % (0.0-11.0); NEUTROPHIL # 3.1 10^3/ul (1.6-7.5); NEUTROPHILS % 65.5 % (39.0-77.0); PLATELET COUNT 274 10^3/UL (140-415); RED BLOOD COUNT 3.88 10^6/ul (4.20-5.40); RED CELL DISTRIBUTION WIDTH 17.2 % (11.5-14.5)
[2017-10-02 06:51] LABS: WHITE BLOOD COUNT 4.7 10^3/ul (4.8-10.8)
[2017-10-02 07:21] LABS: INR 2.19; PROTIME 24.9 Sec (11.9-14.9); PT RATIO 1.9
[2017-10-02 07:36] LABS: ALBUMIN 3.4 g/dl (3.3-4.9); ANION GAP 13 (8-16); BLOOD UREA NITROGEN 12 mg/dl (7-20); CARBON DIOXIDE 27 mmol/L (21-31); CHLORIDE 101 mmol/L (97-110); CREATININE 0.59 mg/dl (0.44-1.00); GLUCOSE 87 mg/dl (70-220); MAGNESIUM 1.8 mg/dl (1.7-2.5); PHOSPHORUS 3.9 mg/dl (2.5-4.9); POTASSIUM 4.1 mmol/L (3.5-5.1); SODIUM 137 mmol/L (135-144)
[2017-10-02] MEDS: SENNA/DOCUSATE NA (8.6MG/50MG) TAB PO (08:17)
[2017-10-02] MEDS: CYANOCOBALAMIN 500 MCG TAB PO (08:17)
[2017-10-02] MEDS: CALCIUM CARBONATE 1.25 GM TAB PO ×2 (08:17→20:55)
[2017-10-02] MEDS: METOPROLOL (XL) 25 MG TAB PO (08:18)
[2017-10-02] MEDS: BENAZEPRIL 40 MG TAB PO (08:18)
[2017-10-02] MEDS: WARFARIN 3 MG TAB PO (16:29)
[2017-10-02] MEDS: traZODone 50 MG TAB PO (20:55)
[2017-10-02] MEDS: ATORVASTATIN 10 MG TAB PO (20:55)
[2017-10-03] MEDS: HYDROCODONE/APAP (10/325) TAB PO ×2 (00:27→11:17)
[2017-10-03 08:18] LABS: INR 2.02; PROTIME 23.3 Sec (11.9-14.9); PT RATIO 1.8
[2017-10-03] MEDS: BENAZEPRIL 40 MG TAB PO (08:48)
[2017-10-03] MEDS: METOPROLOL (XL) 25 MG TAB PO (08:48)
[2017-10-03] MEDS: CALCIUM CARBONATE 1.25 GM TAB PO (08:48)
[2017-10-03] MEDS: SENNA/DOCUSATE NA (8.6MG/50MG) TAB PO (08:48)
[2017-10-03] MEDS: CYANOCOBALAMIN 500 MCG TAB PO (08:48)
== END 2017-10-03 16:26 | disposition home or self-care (01) | DRG 552 ==
LOC: E/R 22:02 → PP2 09-09 02:19
PROC: 2W3QX1Z Immobilization of Right Lower Leg using Splint (ICD-10-PCS; principal; 2017-09-09)
DX: S32.030A Wedge compression fracture of third lumbar vertebra, initial encounter for closed fracture (principal); E53.0 Riboflavin deficiency; I38 Endocarditis, valve unspecified; S82.831A Other fracture of upper and lower end of right fibula, initial encounter for closed fracture; S82.64XA Nondisplaced fracture of lateral malleolus of right fibula, initial encounter for closed fracture; S93.401A Sprain of unspecified ligament of right ankle, initial encounter; W01.0XXA Fall on same level from slipping, tripping and stumbling without subsequent striking against object, initial encounter; D64.9 Anemia, unspecified; E11.9 Type 2 diabetes mellitus without complications; E78.5 Hyperlipidemia, unspecified; I27.20 Pulmonary hypertension, unspecified; I35.0 Nonrheumatic aortic (valve) stenosis; I10 Essential (primary) hypertension; I44.7 Left bundle-branch block, unspecified; R62.7 Adult failure to thrive; Z79.01 Long term (current) use of anticoagulants; Z79.83 Long term (current) use of bisphosphonates
CPT/HCPCS: 70450; 72040; 72131; 72148; 72220; 73590; 73610-RT; 80048; 80053; 80069; 82306; 82607; 82728; 82746; 83036; 83540; 83735; 84100; 84443; 85025; 85610; 85730; 86480; 86592; 93005; 93306; 96374; 96375; 97110; 97116; 97162; 97530; 99285-25; G0378

== ENCOUNTER 2017-10-19 20:55 | Observation (INO) | payer MEDICAID ==
[2017-10-19 22:33] LABS: WHITE BLOOD COUNT 5.5 10^3/ul (4.8-10.8)
[2017-10-19 22:33] LABS: HEMATOCRIT 32.1 % (37.0-47.0); HEMOGLOBIN 10.6 g/dl (12.0-16.0); MEAN CORPUSCULAR HEMOGLOBIN 25.1 pg (29.0-33.0); MEAN CORPUSCULAR VOLUME 75.9 fl (82.0-101.0); MEAN PLATELET VOLUME 9.9 fl (7.4-10.4); PLATELET COUNT 274 10^3/UL (140-415); RED BLOOD COUNT 4.23 10^6/ul (4.20-5.40); RED CELL DISTRIBUTION WIDTH 15.9 % (11.5-14.5)
[2017-10-19 22:44] LABS: ADD MAN DIFF? YES
[2017-10-19 23:01] LABS: ANION GAP 12 (8-16); BLOOD UREA NITROGEN 6 mg/dl (7-20); CALCIUM 9.5 mg/dl (8.4-10.2); CARBON DIOXIDE 34 mmol/L (21-31); CHLORIDE 84 mmol/L (97-110); CREATININE 0.45 mg/dl (0.44-1.00); GLUCOSE 100 mg/dl (70-220); POTASSIUM 3.1 mmol/L (3.5-5.1); SODIUM 127 mmol/L (135-144)
[2017-10-19 23:10] LABS: TROPONIN-I 0.017 ng/ml (0.000-0.120)
[2017-10-19 23:48] LABS: ADD UMIC YES; UR ASCORBIC ACID NEGATIVE (NEGATIVE); UR BILIRUBIN (Dip) NEGATIVE (NEGATIVE); UR BLOOD (Dip) 2+ mg/dL (NEGATIVE); UR CLARITY CLEAR (CLEAR); UR COLOR STRAW (YELLOW); UR GLUCOSE (Dip) NEGATIVE (NEGATIVE); UR KETONES (Dip) NEGATIVE (NEGATIVE); UR LEUKOCYTE ESTERASE (Dip) NEGATIVE Leu/ul (NEGATIVE); UR NITRITE (Dip) NEGATIVE (NEGATIVE); UR RBC 1 /HPF (0-5); UR SPECIFIC GRAVITY (Dip) 1.002 (1.003-1.030); UR TOTAL PROTEIN (Dip) NEGATIVE (NEGATIVE); UR UROBILINOGEN (Dip) NEGATIVE (NEGATIVE); UR WBC 1 /HPF (0-5)
[2017-10-19] MEDS: SOD CHLORIDE 0.9% 1,000 ML IV (23:48)
[2017-10-19] MEDS: POTASSIUM CHLORIDE (SR) 10 MEQ TAB PO (23:49)
[2017-10-20] MEDS: ACETAMINOPHEN 500 MG TAB PO (00:35)
[2017-10-20] MEDS ORDERED: ONDANSETRON 4 MG INJ IV ×2 (01:30→06:30)
[2017-10-20] MEDS ORDERED: ACETAMINOPHEN 325 MG TAB PO ×2 (01:30→06:30)
[2017-10-20 01:35] LABS: BAND NEUTROPHILS #M 0.1 10^3/ul (0.0-0.6); BAND NEUTROPHILS % (M) 2 % (0-4); BASOPHILS % (M) 1 % (0-2); GIANT THROMBO% (M) 2 % (0-0); HYPOCHROMASIA 1+ (0-0); LYMPHOCYTES #M 0.3 10^3/ul (0.8-2.9); LYMPHOCYTES % (M) 7 % (15-51); MONOCYTE #M 0.9 10^3/ul (0.3-0.9); MONOCYTES % (M) 18 % (0-11); PLATELET ESTIMATE NORMAL; POLYCHROMASIA 1+ (0-0); SEGMENTED NEUTROPHILS (M) % 72 % (39-77); SMUDGE%M 1 % (0-0)
[2017-10-20] MEDS: ASPIRIN 81 MG TAB PO (01:35)
[2017-10-20 05:26] LABS: CREATINE KINASE 38 IU/L (23-200)
[2017-10-20 05:39] LABS: CK INDEX 1.5; CK-MB 0.56 ng/ml (0.0-2.4); TROPONIN-I 0.016 ng/ml (0.000-0.120)
[2017-10-20] MEDS ORDERED: ALBUTEROL/IPRATROPIUM (NEB) 3 ML AMP HHN (06:30)
[2017-10-20] MEDS ORDERED: NACL 0.9% 3 ML SYG IV (06:30)
[2017-10-20] MEDS ORDERED: HYDROCODONE/APAP (5/325) TAB PO (06:30)
[2017-10-20] MEDS ORDERED: ALBUTEROL HFA 8 GM INHALER INH (07:00)
[2017-10-20] MEDS: ASPIRIN (EC) 81 MG TAB PO (09:17)
[2017-10-20] MEDS: BENAZEPRIL 40 MG TAB PO (09:18)
[2017-10-20] MEDS: HEPARIN 5,000 UNIT/0.5 ML VIAL SC ×2 (09:19→21:30)
[2017-10-20] MEDS ORDERED: BENAZEPRIL 20 MG TAB PO (09:30)
[2017-10-20 09:58] LABS: ADD MAN DIFF? NO
[2017-10-20 09:59] LABS: WHITE BLOOD COUNT 5.1 10^3/ul (4.8-10.8)
[2017-10-20 09:59] LABS: ABNORMAL IP MESSAGE 1; BASOPHIL # 0.1 10^3/ul (0.0-0.1); BASOPHILS % 1.2 % (0.0-2.0); EOSINOPHILS % 0.6 % (0.0-7.0); HEMATOCRIT 33.1 % (37.0-47.0); HEMOGLOBIN 10.6 g/dl (12.0-16.0); LYMPHOCYTES # 0.6 10^3/ul (0.8-2.9); LYMPHOCYTES % 10.8 % (15.0-51.0); MEAN CORPUSCULAR HEMOGLOBIN 24.7 pg (29.0-33.0); MEAN CORPUSCULAR VOLUME 77.2 fl (82.0-101.0); MONOCYTES % 18.7 % (0.0-11.0); NEUTROPHIL # 3.5 10^3/ul (1.6-7.5); NEUTROPHILS % 68.3 % (39.0-77.0); PLATELET COUNT 273 10^3/UL (140-415); RED BLOOD COUNT 4.29 10^6/ul (4.20-5.40)
[2017-10-20 10:00] LABS: POSITIVE DIFF @See below
[2017-10-20 10:24] LABS: ALANINE AMINOTRANSFERASE 16 IU/L (13-69); ALBUMIN 3.7 g/dl (3.3-4.9); ALBUMIN/GLOBULIN RATIO 1.19; ALKALINE PHOSPHATASE 86 IU/L (42-121); ANION GAP 13 (8-16); ASPARTATE AMINO TRANSFERASE 30 IU/L (15-46); BILIRUBIN,INDIRECT 0.3 mg/dl (0-1.1); BILIRUBIN,TOTAL 0.3 mg/dl (0.2-1.3); BLOOD UREA NITROGEN 4 mg/dl (7-20); CALCIUM 9.1 mg/dl (8.4-10.2); CARBON DIOXIDE 32 mmol/L (21-31); CHLORIDE 91 mmol/L (97-110); CREATININE 0.35 mg/dl (0.44-1.00); GLUCOSE 104 mg/dl (70-220); POTASSIUM 3.3 mmol/L (3.5-5.1); SODIUM 133 mmol/L (135-144); TOTAL PROTEIN 6.8 g/dl (6.1-8.1)
[2017-10-20 11:46] LABS: CREATINE KINASE 39 IU/L (23-200)
[2017-10-20 11:56] LABS: CK-MB 0.77 ng/ml (0.0-2.4); TROPONIN-I 0.015 ng/ml (0.000-0.120)
[2017-10-20 12:14] LABS: HEMOGLOBIN A1C 6.1 % (0-5.9)
[2017-10-20 12:24] LABS: CHOL/HDL RATIO 2.6 RATIO; CHOLESTEROL 132 mg/dl (100-200); HDL CHOLESTEROL 50 mg/dl (33-92); IRON 29 ug/dl (35-150); LDL CHOLESTEROL,CALCULATED 69 mg/dl; TRIGLYCERIDES 67 mg/dl (0-149)
[2017-10-20 12:24] LABS: MAGNESIUM 1.7 mg/dl (1.7-2.5)
[2017-10-20 12:33] LABS: % IRON SATURATION 6 % SAT (22-52); TOTAL IRON BINDING CAPACITY 469 ug/dl (241-421)
[2017-10-20 12:55] LABS: THYROID STIMULATING HORMONE 0.885 MIU/L (0.465-4.680)
[2017-10-20 12:59] LABS: FERRITIN 26.2 ng/ml (11.1-264.0)
[2017-10-20] MEDS: POTASSIUM CHLORIDE (SR) 20 MEQ TAB PO (13:05)
[2017-10-20] MEDS: hydrALAzine 20 MG INJ IV (18:58)
[2017-10-20] MEDS: SOD CHLORIDE 0.9% 1,000 ML IV ×2 (18:58→23:20)
[2017-10-20] MEDS: ATORVASTATIN 10 MG TAB PO (21:02)
[2017-10-20] MEDS: HYDROCODONE/APAP (5/325) TAB PO (21:09)
[2017-10-21] MEDS: PANTOPRAZOLE (EC) 40 MG TAB PO (06:01)
[2017-10-21 06:07] LABS: ADD MAN DIFF? NO
[2017-10-21 06:10] LABS: WHITE BLOOD COUNT 4.8 10^3/ul (4.8-10.8)
[2017-10-21 06:10] LABS: BASOPHIL # 0.1 10^3/ul (0.0-0.1); BASOPHILS % 1.5 % (0.0-2.0); EOSINOPHILS # 0.1 10^3/ul (0.0-0.5); EOSINOPHILS % 1.2 % (0.0-7.0); HEMATOCRIT 34.5 % (37.0-47.0); HEMOGLOBIN 10.8 g/dl (12.0-16.0); LYMPHOCYTES # 0.7 10^3/ul (0.8-2.9); LYMPHOCYTES % 14.9 % (15.0-51.0); MEAN CORPUSCULAR HEMOGLOBIN 24.5 pg (29.0-33.0); MEAN CORPUSCULAR HGB CONC 31.3 g/dl (32.0-37.0); MEAN CORPUSCULAR VOLUME 78.2 fl (82.0-101.0); NEUTROPHILS % 61.2 % (39.0-77.0); PLATELET COUNT 296 10^3/UL (140-415); RED BLOOD COUNT 4.41 10^6/ul (4.20-5.40); RED CELL DISTRIBUTION WIDTH 16.2 % (11.5-14.5)
[2017-10-21 06:38] LABS: ALANINE AMINOTRANSFERASE 20 IU/L (13-69); ALBUMIN 3.8 g/dl (3.3-4.9); ALBUMIN/GLOBULIN RATIO 1.22; ALKALINE PHOSPHATASE 106 IU/L (42-121); ANION GAP 14 (8-16); ASPARTATE AMINO TRANSFERASE 25 IU/L (15-46); BILIRUBIN,INDIRECT 0.4 mg/dl (0-1.1); BILIRUBIN,TOTAL 0.4 mg/dl (0.2-1.3); BLOOD UREA NITROGEN 7 mg/dl (7-20); CALCIUM 9.4 mg/dl (8.4-10.2); CARBON DIOXIDE 30 mmol/L (21-31); CHLORIDE 96 mmol/L (97-110); CREATININE 0.51 mg/dl (0.44-1.00); GLUCOSE 110 mg/dl (70-220); MAGNESIUM 1.8 mg/dl (1.7-2.5); POTASSIUM 3.3 mmol/L (3.5-5.1); SODIUM 137 mmol/L (135-144); TOTAL PROTEIN 6.9 g/dl (6.1-8.1)
[2017-10-21] MEDS: ASPIRIN (EC) 81 MG TAB PO (08:44)
[2017-10-21] MEDS: HEPARIN 5,000 UNIT/0.5 ML VIAL SC (08:47)
[2017-10-21] MEDS: POTASSIUM CHLORIDE (SR) 20 MEQ TAB PO (09:32)
[2017-10-21] MEDS: MAGNESIUM SULFATE 1 GM/D5W 100 ML IVPB (11:11)
[2017-10-21] MEDS: IBUPROFEN 400 MG TAB PO ×2 (12:11→18:28)
[2017-10-21] MEDS: SOD CHLORIDE 0.9% 1,000 ML IV (12:11)
[2017-10-21] MEDS: hydrALAzine 20 MG INJ IV (12:11)
[2017-10-21] MEDS: SOD FERRIC GLUC COMPLX 125 MG in SOD CHLORIDE 0.9% 100 ML IVPB (16:44)
== END 2017-10-21 19:10 | disposition home or self-care (01) ==
LOC: E/R 20:55 → 6WM 10-20 01:02
DX: R07.89 Other chest pain (principal); I48.2 Chronic atrial fibrillation; I10 Essential (primary) hypertension; R73.03 Prediabetes; D50.9 Iron deficiency anemia, unspecified; E87.6 Hypokalemia; I16.0 Hypertensive urgency; R51 Headache; E78.5 Hyperlipidemia, unspecified; E87.1 Hypo-osmolality and hyponatremia; S82.899D Other fracture of unspecified lower leg, subsequent encounter for closed fracture with routine healing; S32.009D Unspecified fracture of unspecified lumbar vertebra, subsequent encounter for fracture with routine healing; W19.XXXD Unspecified fall, subsequent encounter
CPT/HCPCS: 36415; 70450; 71045; 80048; 80053; 80061; 81001; 82550; 82553; 82728; 83036; 83540; 83735; 84443; 84484; 85025; 93005; 93306; 99217; 99285-25

== ENCOUNTER 2018-10-28 21:35 | Inpatient (IN) | payer OTHER, MEDICAID ==
[2018-10-28 23:03] LABS: ADD MAN DIFF? NO
[2018-10-28 23:06] LABS: ABNORMAL IP MESSAGE 1; BASOPHIL # 0.1 10^3/ul (0.0-0.1); BASOPHILS % 0.7 % (0.0-2.0); EOSINOPHILS % 0.4 % (0.0-7.0); HEMATOCRIT 36.6 % (37.0-47.0); LYMPHOCYTES # 0.4 10^3/ul (0.8-2.9); LYMPHOCYTES % 5.9 % (15.0-51.0); MEAN CORPUSCULAR HEMOGLOBIN 30.2 pg (29.0-33.0); MEAN CORPUSCULAR HGB CONC 32.8 g/dl (32.0-37.0); MEAN CORPUSCULAR VOLUME 92.2 fl (82.0-101.0); MONOCYTE # 1.2 10^3/ul (0.3-0.9); MONOCYTES % 16.7 % (0.0-11.0); NEUTROPHIL # 5.6 10^3/ul (1.6-7.5); NEUTROPHILS % 75.8 % (39.0-77.0); PLATELET COUNT 245 10^3/UL (140-415); RED BLOOD COUNT 3.97 10^6/ul (4.20-5.40); RED CELL DISTRIBUTION WIDTH 13.6 % (11.5-14.5)
[2018-10-28 23:06] LABS: WHITE BLOOD COUNT 7.4 10^3/ul (4.8-10.8)
[2018-10-28 23:08] LABS: POSITIVE DIFF @See below
[2018-10-28 23:21] LABS: HEMOGLOBIN A1C 5.8 % (0-5.9)
[2018-10-28 23:23] LABS: PROTIME 19.1 Sec (11.9-14.9); PT RATIO 1.5
[2018-10-28 23:24] LABS: ANION GAP 8 (5-13); BLOOD UREA NITROGEN 13 mg/dl (7-20); CALCIUM 9.6 mg/dl (8.4-10.2); CARBON DIOXIDE 30 mmol/L (21-31); CHLORIDE 94 mmol/L (97-110); CHOL/HDL RATIO 2.5 RATIO; CHOLESTEROL 121 mg/dl (100-200); CREATININE 0.47 mg/dl (0.44-1.00); GLUCOSE 106 mg/dl (70-220); HDL CHOLESTEROL 47 mg/dl (33-92); LDL CHOLESTEROL,CALCULATED 65 mg/dl; POTASSIUM 3.9 mmol/L (3.5-5.1); SODIUM 132 mmol/L (135-144); TRIGLYCERIDES 46 mg/dl (0-149)
[2018-10-28 23:25] LABS: PARTIAL THROMBOPLASTIN TIME 42.8 Sec (23.0-35.0)
[2018-10-28 23:35] LABS: TROPONIN-I 0.013 ng/ml (0.000-0.120)
[2018-10-29] MEDS: ASPIRIN 325 MG TAB PO
[2018-10-29 00:09] LABS: ADD UMIC NO; UR ASCORBIC ACID NEGATIVE (NEGATIVE); UR BILIRUBIN (Dip) NEGATIVE (NEGATIVE); UR BLOOD (Dip) NEGATIVE (NEGATIVE); UR CLARITY CLEAR (CLEAR); UR COLOR YELLOW (YELLOW); UR GLUCOSE (Dip) NEGATIVE (NEGATIVE); UR KETONES (Dip) NEGATIVE (NEGATIVE); UR LEUKOCYTE ESTERASE (Dip) NEGATIVE Leu/ul (NEGATIVE); UR NITRITE (Dip) NEGATIVE (NEGATIVE); UR SPECIFIC GRAVITY (Dip) 1.009 (1.003-1.030); UR TOTAL PROTEIN (Dip) NEGATIVE (NEGATIVE); UR UROBILINOGEN (Dip) 1+ mg/dL (NEGATIVE)
[2018-10-29 00:36] LABS: AMPHETAMINE/METHAMPHETAMINE NEGATIVE (NEGATIVE); BARBITURATES NEGATIVE (NEGATIVE); BENZODIAZEPINES NEGATIVE (NEGATIVE); CANNABINOIDS NEGATIVE (NEGATIVE); COCAINE NEGATIVE (NEGATIVE); OPIATES NEGATIVE (NEGATIVE)
[2018-10-29] MEDS: ACETAMINOPHEN 325 MG TAB PO (01:30)
[2018-10-29] MEDS ORDERED: ONDANSETRON 4 MG INJ IV ×2 (04:00)
[2018-10-29] MEDS ORDERED: ACETAMINOPHEN 325 MG TAB PO ×2 (04:00)
[2018-10-29] MEDS ORDERED: NACL 0.9% 3 ML SYG IV (04:00)
[2018-10-29] MEDS: PANTOPRAZOLE (EC) 40 MG TAB PO (06:03)
[2018-10-29 06:21] LABS: ADD MAN DIFF? NO
[2018-10-29 06:25] LABS: ABNORMAL IP MESSAGE 1; BASOPHIL # 0.1 10^3/ul (0.0-0.1); BASOPHILS % 0.7 % (0.0-2.0); EOSINOPHILS % 0.3 % (0.0-7.0); HEMATOCRIT 36.1 % (37.0-47.0); HEMOGLOBIN 11.9 g/dl (12.0-16.0); LYMPHOCYTES # 0.4 10^3/ul (0.8-2.9); LYMPHOCYTES % 5.6 % (15.0-51.0); MEAN CORPUSCULAR HEMOGLOBIN 30.4 pg (29.0-33.0); MEAN CORPUSCULAR VOLUME 92.1 fl (82.0-101.0); MEAN PLATELET VOLUME 10.2 fl (7.4-10.4); MONOCYTE # 1.1 10^3/ul (0.3-0.9); MONOCYTES % 14.8 % (0.0-11.0); NEUTROPHIL # 5.6 10^3/ul (1.6-7.5); PLATELET COUNT 247 10^3/UL (140-415); RED BLOOD COUNT 3.92 10^6/ul (4.20-5.40); RED CELL DISTRIBUTION WIDTH 13.9 % (11.5-14.5)
[2018-10-29 06:25] LABS: WHITE BLOOD COUNT 7.1 10^3/ul (4.8-10.8)
[2018-10-29 06:33] LABS: POSITIVE DIFF @See below
[2018-10-29 06:42] LABS: CREATINE KINASE 35 IU/L (23-200)
[2018-10-29] MEDS: morphine 4 MG/ML VIAL IV (06:49)
[2018-10-29 06:50] LABS: ALANINE AMINOTRANSFERASE 25 IU/L (13-69); ALBUMIN 3.3 g/dl (3.3-4.9); ALKALINE PHOSPHATASE 105 IU/L (42-121); ANION GAP 7 (5-13); ASPARTATE AMINO TRANSFERASE 26 IU/L (15-46); BILIRUBIN,INDIRECT 0.5 mg/dl (0-1.1); BILIRUBIN,TOTAL 0.5 mg/dl (0.2-1.3); BLOOD UREA NITROGEN 10 mg/dl (7-20); CALCIUM 9.3 mg/dl (8.4-10.2); CARBON DIOXIDE 31 mmol/L (21-31); CHLORIDE 96 mmol/L (97-110); CHOL/HDL RATIO 2.1 RATIO; CHOLESTEROL 117 mg/dl (100-200); CREATININE 0.49 mg/dl (0.44-1.00); GLUCOSE 124 mg/dl (70-220); HDL CHOLESTEROL 54 mg/dl (33-92); LDL CHOLESTEROL,CALCULATED 56 mg/dl; POTASSIUM 3.5 mmol/L (3.5-5.1); SODIUM 134 mmol/L (135-144); TOTAL PROTEIN 6.3 g/dl (6.1-8.1); TRIGLYCERIDES 37 mg/dl (0-149)
[2018-10-29 06:53] LABS: CK INDEX 1.9; CK-MB 0.65 ng/ml (0.0-2.4)
[2018-10-29 06:56] LABS: HEMOGLOBIN A1C 5.8 % (0-5.9)
[2018-10-29 07:20] LABS: THYROID STIMULATING HORMONE 0.787 MIU/L (0.465-4.680)
[2018-10-29] MEDS: METOPROLOL (XL) 25 MG TAB PO (08:04)
[2018-10-29] MEDS: FERROUS SULFATE (EC) 325 MG TAB PO ×3 (08:04→20:44)
[2018-10-29] MEDS: BENAZEPRIL 40 MG TAB PO (08:05)
[2018-10-29] MEDS: ASPIRIN (EC) 81 MG TAB PO (08:05)
[2018-10-29] MEDS: HEPARIN 5,000 UNIT/1 ML VIAL SC ×2 (08:07→20:52)
[2018-10-29] MEDS: SOD CHLORIDE 0.9% 100 ML (08:11)
[2018-10-29] MEDS: IOHEXOL 100 ML (08:11)
[2018-10-29] MEDS: METHYLPREDNISOLONE 125 MG INJ IV (10:06)
[2018-10-29] MEDS: LEVOFLOXACIN 500MG/D5W (PMX) 100 ML IVPB (10:09)
[2018-10-29] MEDS ORDERED: HYDROCODONE/APAP (5/325) TAB PO (11:30)
[2018-10-29] MEDS: CARISOPRODOL 350 MG TAB PO ×2 (12:24→20:43)
[2018-10-29] MEDS: ATORVASTATIN 10 MG TAB PO (20:44)
[2018-10-30] MEDS: PANTOPRAZOLE (EC) 40 MG TAB PO (05:40)
[2018-10-30 05:50] LABS: ADD MAN DIFF? NO
[2018-10-30 05:55] LABS: WHITE BLOOD COUNT 5.6 10^3/ul (4.8-10.8)
[2018-10-30 05:55] LABS: ABNORMAL IP MESSAGE 1; BASOPHILS % 0.2 % (0.0-2.0); HEMATOCRIT 35.6 % (37.0-47.0); HEMOGLOBIN 11.5 g/dl (12.0-16.0); LYMPHOCYTES # 0.2 10^3/ul (0.8-2.9); LYMPHOCYTES % 3.9 % (15.0-51.0); MEAN CORPUSCULAR HEMOGLOBIN 29.9 pg (29.0-33.0); MEAN CORPUSCULAR HGB CONC 32.3 g/dl (32.0-37.0); MEAN CORPUSCULAR VOLUME 92.7 fl (82.0-101.0); MEAN PLATELET VOLUME 10.4 fl (7.4-10.4); MONOCYTE # 0.3 10^3/ul (0.3-0.9); MONOCYTES % 4.8 % (0.0-11.0); NEUTROPHIL # 5.1 10^3/ul (1.6-7.5); NEUTROPHILS % 90.6 % (39.0-77.0); PLATELET COUNT 205 10^3/UL (140-415); RED BLOOD COUNT 3.84 10^6/ul (4.20-5.40); RED CELL DISTRIBUTION WIDTH 13.6 % (11.5-14.5)
[2018-10-30 05:58] LABS: POSITIVE DIFF @See below
[2018-10-30 06:18] LABS: ANION GAP 4 (5-13); BLOOD UREA NITROGEN 13 mg/dl (7-20); CALCIUM 9.2 mg/dl (8.4-10.2); CARBON DIOXIDE 31 mmol/L (21-31); CHLORIDE 97 mmol/L (97-110); CREATININE 0.44 mg/dl (0.44-1.00); GLUCOSE 139 mg/dl (70-220); MAGNESIUM 1.8 mg/dl (1.7-2.5); PHOSPHORUS 3.3 mg/dl (2.5-4.9); SODIUM 132 mmol/L (135-144)
[2018-10-30] MEDS: ASPIRIN (EC) 81 MG TAB PO (08:19)
[2018-10-30] MEDS: FERROUS SULFATE (EC) 325 MG TAB PO ×3 (08:19→20:22)
[2018-10-30] MEDS: METOPROLOL (XL) 25 MG TAB PO (08:20)
[2018-10-30] MEDS: LEVOFLOXACIN 500MG/D5W (PMX) 100 ML IVPB (08:20)
[2018-10-30] MEDS: BENAZEPRIL 40 MG TAB PO (08:20)
[2018-10-30] MEDS: ALBUTEROL HFA 8 GM INHALER INH ×2 (08:26→14:20)
[2018-10-30] MEDS: CARISOPRODOL 350 MG TAB PO ×3 (08:32→20:21)
[2018-10-30] MEDS: HEPARIN 5,000 UNIT/1 ML VIAL SC ×2 (08:50→20:37)
[2018-10-30] MEDS: ATORVASTATIN 10 MG TAB PO (20:22)
[2018-10-30] MEDS: MECLIZINE 12.5 MG TAB PO (23:22)
[2018-10-31] MEDS ORDERED: GUAIFENESIN/CODEINE 5ML CUP PO (03:00)
[2018-10-31] MEDS ORDERED: ZOLPIDEM 5 MG TAB PO (03:00)
[2018-10-31] MEDS ORDERED: GUAIFENESIN/DM 5ML CUP ×2 (03:01→03:02)
[2018-10-31] MEDS: ZOLPIDEM 5 MG TAB PO (03:14)
[2018-10-31] MEDS: GUAIFENESIN 20 MG/ML 5ML CUP PO (03:29)
[2018-10-31] MEDS ORDERED: GUAIFENESIN/DM 5ML CUP PO (03:30)
[2018-10-31] MEDS: PANTOPRAZOLE (EC) 40 MG TAB PO (06:08)
[2018-10-31 06:15] LABS: ANION GAP 6 (5-13); BLOOD UREA NITROGEN 14 mg/dl (7-20); CALCIUM 9.2 mg/dl (8.4-10.2); CARBON DIOXIDE 33 mmol/L (21-31); CHLORIDE 93 mmol/L (97-110); CREATININE 0.47 mg/dl (0.44-1.00); GLUCOSE 92 mg/dl (70-220); SODIUM 132 mmol/L (135-144)
[2018-10-31] MEDS: LEVOFLOXACIN 500MG/D5W (PMX) 100 ML IVPB (08:50)
[2018-10-31] MEDS: MECLIZINE 12.5 MG TAB PO ×2 (10:01→13:52)
[2018-10-31] MEDS: CARISOPRODOL 350 MG TAB PO ×2 (10:01→13:52)
[2018-10-31] MEDS: FERROUS SULFATE (EC) 325 MG TAB PO ×2 (10:02→13:52)
[2018-10-31] MEDS: BENAZEPRIL 40 MG TAB PO (10:02)
[2018-10-31] MEDS: ASPIRIN (EC) 81 MG TAB PO (10:02)
[2018-10-31] MEDS: METOPROLOL (XL) 25 MG TAB PO (10:02)
[2018-10-31] MEDS: HEPARIN 5,000 UNIT/1 ML VIAL SC (10:12)
== END 2018-10-31 17:58 | disposition home or self-care (01) | DRG 149 ==
LOC: 6WM 23:37 → E/R 21:35
PROVIDERS: Internal Medicine
DX: H81.393 Other peripheral vertigo, bilateral (principal); I48.2 Chronic atrial fibrillation; J20.9 Acute bronchitis, unspecified; I10 Essential (primary) hypertension; I25.10 Atherosclerotic heart disease of native coronary artery without angina pectoris; M54.2 Cervicalgia; D50.9 Iron deficiency anemia, unspecified; R10.13 Epigastric pain; M25.512 Pain in left shoulder; Z79.82 Long term (current) use of aspirin; Z98.49 Cataract extraction status, unspecified eye; Z90.49 Acquired absence of other specified parts of digestive tract
CPT/HCPCS: 36415; 70450; 70496; 70498; 70551; 71045; 72125; 74176; 80048; 80053; 80061; 80307; 81003; 82550; 82553; 82962; 83036; 83735; 84100; 84443; 84484; 85025; 85610; 85730; 92526; 92610; 93005; 93306; 97162; 99285-25; G0378